=== PATIENT | female | born 1940 | race Caucasian/White ===

== ENCOUNTER 2016-03-02 06:10 | Emergency (ER) | payer MEDICARE ==
[~2016-03-02 06:10] MED LIST: ALBUTEROL0.09 MG/A4 IH; APHEN325 MG PO; BACTRIM DS 8001 TAB PO; BISOPROLOL5 MG PO; CALCIUM + D 5001 TAB PO; CALCIUM WITH D1 CTB PO; CIPRO 250MG TA250 MG PO; COLACE 100100 MG/CAP PO; COLACE100 M1 PO; FLONASE0.05 MG/AC NS; GABAPENTIN100 M1 PO; GABAPENTIN300 MG PO; GOOD NEIGHBOR650 MG PO; HCTZ/LISINOPRIL1 TAB PO; HUMALOG KW200 UNIT/1 SC; HUMALOG KW200 UNIT/1 SQ; HUMALOG PEN100 U/ML SC; IBUPROFEN200 M1 PO; INSULIN HUMA U SC; LANTUS PEN100 U/ML SC; LANTUS SOLOS100 U/ML SC; LIPITOR 10MG10 MG PO; LIPITOR10 MG PO; LISINOPRIL2.5 MG PO; MEDI-FIRST ASP325 MG PO; MIRALAX17 GM/DOSE PO; NORCO 325 MG-51 TA1 PO; NTG 0.4; OXYCODONE5 M1 PO; PLAVIX 75MG TAB75 MG PO; RANITIDINE 150150 MG PO; [UNRECOGNIZED DRUG - OTHER] PO; [UNRECOGNIZED DRUG - OTHER] SC
[2016-03-02] MEDS ORDERED: FLEXERIL 1010 MG/TAB PO (07:41)
[2016-03-02] MEDS ORDERED: PERCOCET 325 MG1 TA2 PO (07:41)
== END 2016-03-02 08:06 | disposition home or self-care (01) ==
LOC: ED 06:10
DX: M54.5 Low back pain (principal)

== ENCOUNTER → 2016-06-25 | Outpatient (CLI) | payer MEDICARE ==
[2016-03-02 08:06] VITALS: BP 147/92
[~2016-06-25] MED LIST changes: +FLEXERIL 1010 MG/TAB PO; +PERCOCET 325 MG1 TA2 PO
== END ==
LOC: LAB 16:49
DX: E13.9 Other specified diabetes mellitus without complications (principal)

== ENCOUNTER → 2016-08-22 | Outpatient (CLI) | payer MEDICARE ==
[2016-03-02 08:06] VITALS: BP 147/92
== END ==
LOC: LAB 07:19
DX: E13.9 Other specified diabetes mellitus without complications (principal); I10 Essential (primary) hypertension

== ENCOUNTER → 2016-10-20 | Outpatient (CLI) | payer MEDICARE, MEDICAID ==
[2016-03-02 08:06] VITALS: BP 147/92
== END ==
LOC: LAB 16:16
DX: E13.9 Other specified diabetes mellitus without complications (principal); I12.9 Hypertensive chronic kidney disease with stage 1 through stage 4 chronic kidney disease, or unspecified chronic kidney disease; N18.3 Chronic kidney disease, stage 3 (moderate); R53.83 Other fatigue

== ENCOUNTER → 2017-01-09 | Outpatient (CLI) | payer MEDICARE, MEDICAID ==
[2016-03-02 08:06] VITALS: BP 147/92
[2017-01-09 17:44] LABS: ALBUMIN 3.8 g/dL (3.5-5.0); CALCIUM 9.1 mg/dL (8.4-10.2); POTASSIUM 4.4 mmol/L (3.6-5.0); TOTAL BILIRUBIN 0.4 mg/dL (0.2-1.3); TOTAL PROTEIN 7.3 g/dL (6.3-8.2)
== END ==
LOC: LAB 16:51
PROVIDERS: Family Medicine
DX: E13.9 Other specified diabetes mellitus without complications (principal); Z12.12 Encounter for screening for malignant neoplasm of rectum; E11.22 Type 2 diabetes mellitus with diabetic chronic kidney disease; N18.3 Chronic kidney disease, stage 3 (moderate); I12.9 Hypertensive chronic kidney disease with stage 1 through stage 4 chronic kidney disease, or unspecified chronic kidney disease; E03.9 Hypothyroidism, unspecified

== ENCOUNTER → 2017-01-28 | Outpatient (CLI) | payer MEDICARE, MEDICAID ==
[2016-03-02 08:06] VITALS: BP 147/92
== END ==
LOC: RAD 16:47
DX: R10.12 Left upper quadrant pain (principal); E07.89 Other specified disorders of thyroid; I10 Essential (primary) hypertension; E13.9 Other specified diabetes mellitus without complications

== ENCOUNTER → 2017-01-28 | Outpatient (CLI) | payer MEDICARE, MEDICAID ==
[2016-03-02 08:06] VITALS: BP 147/92
== END ==
LOC: LAB 15:54
DX: Z12.12 Encounter for screening for malignant neoplasm of rectum (principal)

== ENCOUNTER → 2017-02-24 | Outpatient (CLI) | payer MEDICARE, MEDICAID ==
[2016-03-02 08:06] VITALS: BP 147/92
[2017-02-24 12:05] LABS: BUN/CREATININE RATIO 14.2 (6.0-26.0); CALCIUM 8.8 mg/dL (8.4-10.2); POTASSIUM 4.8 mmol/L (3.6-5.0)
== END ==
LOC: LAB 11:43
PROVIDERS: Family Medicine
DX: E07.89 Other specified disorders of thyroid (principal); N18.3 Chronic kidney disease, stage 3 (moderate)

== ENCOUNTER → 2017-03-03 | Outpatient (CLI) | payer MEDICARE ==
[2016-03-02 08:06] VITALS: BP 147/92
== END ==
LOC: RAD 02-27 09:45
DX: R10.12 Left upper quadrant pain (principal); E13.9 Other specified diabetes mellitus without complications; K63.89 Other specified diseases of intestine; R18.8 Other ascites; E27.9 Disorder of adrenal gland, unspecified; R93.5 Abnormal findings on diagnostic imaging of other abdominal regions, including retroperitoneum; R14.0 Abdominal distension (gaseous)
CPT/HCPCS: Q9967

== ENCOUNTER → 2017-03-05 | Outpatient (CLI) | payer MEDICARE ==
[2016-03-02 08:06] VITALS: BP 147/92
[2017-03-05 20:05] LABS: ALBUMIN 3.4 g/dL (3.5-5.0); BUN/CREATININE RATIO 12.1 (6.0-26.0); CALCIUM 8.9 mg/dL (8.4-10.2); POTASSIUM 4.9 mmol/L (3.6-5.0); TOTAL BILIRUBIN 0.4 mg/dL (0.2-1.3); TOTAL PROTEIN 6.8 g/dL (6.3-8.2)
[2017-03-05 20:21] LABS: BASO # 0.1 (0.02-0.10); EOS # 0.2 (0.04-0.40); EOS % 2.1 % (1.0-5.0); HEMATOCRIT 33.2 % (37.0-47.0); HEMOGLOBIN 9.7 g/dL (12.5-16.0); LYMPH# 2.3 (1.50-4.00); MEAN CELL VOLUME 78 fl (78-100); MEAN PLATELET VOLUME 10.3 fl (7.4-10.4); MONO # 0.7 (0.20-0.80); NEU # 6.3 (1.40-6.50); RED BLOOD COUNT 4.28 M/mm3 (4.10-5.30); RED CELL DISTRIBUTION WIDTH 15.4 % (11.5-14.5); WHITE BLOOD COUNT 9.5 K/mm3 (4.8-10.8)
[2017-03-05 20:28] LABS: MEAN CORPUSCULAR HEMOGLOBIN 23 pg (27-31); MEAN CORPUSCULAR HGB CONC 29 g/dL (33-37); PLATELET COUNT 501 K/mm3 (130-400)
== END ==
LOC: LAB 17:39
PROVIDERS: Family Medicine
DX: R10.12 Left upper quadrant pain (principal)

== ENCOUNTER → 2017-04-24 | Outpatient (CLI) | payer MEDICARE ==
[2016-03-02 08:06] VITALS: BP 147/92
== END ==
LOC: LAB 16:53
DX: E13.9 Other specified diabetes mellitus without complications (principal)

== ENCOUNTER 2017-05-29 13:09 | Inpatient (IN) | payer MEDICARE ==
[~2017-05-29] VITALS: Ht 167.6 cm; Wt 81.5 kg
[2017-05-29 13:58] VITALS: BP 117/68
[2017-05-29 17:42] LABS: URINE APPEARANCE CLEAR; URINE BILIRUBIN NEGATIVE (NEGATIVE); URINE BLOOD NEGATIVE (NEGATIVE); URINE COLOR YELLOW; URINE GLUCOSE NEGATIVE (NEGATIVE); URINE KETONE NEGATIVE (NEGATIVE); URINE LEUKOCYTE ESTERASE NEGATIVE (NEGATIVE); URINE NITRATE NEGATIVE (NEGATIVE); URINE PROTEIN(semi-quant) NEGATIVE (NEGATIVE); URINE UROBILINOGEN NORMAL (NORMAL)
[2017-05-29 18:13] VITALS: BP 119/64
[2017-05-29] MEDS ORDERED: NEURONTIN300 MG/CAP PO (18:53)
[2017-05-29] MEDS ORDERED: LANTUS SOLOS100 U/ML (19:14)
[2017-05-29] MEDS ORDERED: HUMALOG KWIKPEN SQ (19:16)
[2017-05-29] MEDS ORDERED: PANTOPRAZOLE SO40 MG PO (19:16)
[2017-05-29] MEDS ORDERED: LEVOTHYROXINE0.05 MG PO (19:17)
[2017-05-29] MEDS ORDERED: ACETAMINOPHEN-H1 TA2 PO (19:19)
[2017-05-30 06:30] VITALS: BP 122/67
[2017-05-30 18:56] VITALS: BP 111/70
[2017-05-31 07:13] VITALS: BP 117/70
[2017-05-31 19:10] VITALS: BP 100/62
[2017-06-01 01:45] VITALS: BP 86/42
[2017-06-01 02:25] VITALS: BP 115/61
[2017-06-01 06:37] VITALS: BP 114/64
[2017-06-01 07:07] LABS: BASO # 0.1 (0.02-0.10); EOS # 0.2 (0.04-0.40); EOS % 1.3 % (1.0-5.0); HEMATOCRIT 28.7 % (37.0-47.0); HEMOGLOBIN 8.2 g/dL (12.5-16.0); LYMPH# 1.9 (1.50-4.00); MEAN CELL VOLUME 84 fl (78-100); MEAN PLATELET VOLUME 10.3 fl (7.4-10.4); NEU # 8.8 (1.40-6.50); PLATELET COUNT 488 K/mm3 (130-400); RED BLOOD COUNT 3.43 M/mm3 (4.10-5.30); WHITE BLOOD COUNT 12.1 K/mm3 (4.8-10.8)
[2017-06-01 07:08] LABS: MEAN CORPUSCULAR HEMOGLOBIN 24 pg (27-31); MEAN CORPUSCULAR HGB CONC 29 g/dL (33-37); RED CELL DISTRIBUTION WIDTH 26.2 % (11.5-14.5)
[2017-06-01 07:10] LABS: CALCIUM 8.6 mg/dL (8.4-10.2); POTASSIUM 4.1 mmol/L (3.6-5.0)
[2017-06-01 18:48] VITALS: BP 97/55
[2017-06-02 06:27] VITALS: BP 118/65
[2017-06-02 18:19] VITALS: BP 120/64
[2017-06-03 06:28] VITALS: BP 128/74
[2017-06-03 18:01] VITALS: BP 110/65
[2017-06-04 06:20] VITALS: BP 113/73
[2017-06-04 09:37] LABS: BASO # 0.1 (0.02-0.10); EOS # 0.3 (0.04-0.40); EOS % 2.4 % (1.0-5.0); HEMATOCRIT 30.5 % (37.0-47.0); HEMOGLOBIN 8.7 g/dL (12.5-16.0); LYMPH# 1.9 (1.50-4.00); MEAN CELL VOLUME 85 fl (78-100); MEAN PLATELET VOLUME 10.3 fl (7.4-10.4); NEU # 7.3 (1.40-6.50); RED BLOOD COUNT 3.57 M/mm3 (4.10-5.30); WHITE BLOOD COUNT 10.6 K/mm3 (4.8-10.8)
[2017-06-04 09:38] LABS: MEAN CORPUSCULAR HEMOGLOBIN 24 pg (27-31); MEAN CORPUSCULAR HGB CONC 29 g/dL (33-37); PLATELET COUNT 593 K/mm3 (130-400)
[2017-06-04 18:28] VITALS: BP 138/78
[2017-06-05 06:21] VITALS: BP 129/76
[2017-06-05 18:03] VITALS: BP 128/74
[2017-06-06 06:28] VITALS: BP 120/68
[2017-06-06 18:16] VITALS: BP 105/56
[2017-06-07 06:26] VITALS: BP 141/78
[2017-06-07 18:15] VITALS: BP 109/61
[2017-06-08 06:17] VITALS: BP 139/72
[2017-06-08 06:23] LABS: HEMOGLOBIN 8.8 g/dL (12.5-16.0); MEAN CELL VOLUME 86 fl (78-100); MEAN PLATELET VOLUME 9.6 fl (7.4-10.4); PLATELET COUNT 491 K/mm3 (130-400); RED BLOOD COUNT 3.62 M/mm3 (4.10-5.30)
[2017-06-08 06:37] LABS: MEAN CORPUSCULAR HEMOGLOBIN 24 pg (27-31); MEAN CORPUSCULAR HGB CONC 28 g/dL (33-37); RED CELL DISTRIBUTION WIDTH 26.2 % (11.5-14.5)
[2017-06-08 06:38] LABS: BUN/CREATININE RATIO 15.8 (6.0-26.0); CALCIUM 8.7 mg/dL (8.4-10.2); POTASSIUM 4.3 mmol/L (3.6-5.0)
[2017-06-08 07:46] LABS: LYMPHOCYTE 26 % (20-51); NEUTROPHILS 64 % (42-75)
[2017-06-08 07:47] LABS: HYPOCHROMIA 1+; MONOCYTE 5 % (3-10); POLYCHROMASIA 1+
[2017-06-08 07:48] LABS: MICROCYTOSIS 1+; OVALOCYTES 1+
[2017-06-08 07:50] LABS: URINE APPEARANCE CLOUDY; URINE COLOR LT YELLOW
[2017-06-08 07:58] LABS: PH-URINE 7.5 (5.0 - 8.0); URINE BILIRUBIN NEGATIVE (NEGATIVE); URINE BLOOD 50 ery/uL (NEGATIVE); URINE GLUCOSE NEGATIVE (NEGATIVE); URINE KETONE NEGATIVE (NEGATIVE); URINE LEUKOCYTE ESTERASE 2+ (NEGATIVE); URINE NITRATE POSITIVE (NEGATIVE); URINE PROTEIN(semi-quant) TRACE mg/dL (NEGATIVE); URINE UROBILINOGEN NORMAL (NORMAL); URINE WBC >50 /hpf (0-3)
[2017-06-08 11:46] LABS: URINE APPEARANCE CLOUDY; URINE BILIRUBIN NEGATIVE (NEGATIVE); URINE BLOOD 50 ery/uL (NEGATIVE); URINE COLOR LT YELLOW; URINE GLUCOSE NEGATIVE (NEGATIVE); URINE KETONE NEGATIVE (NEGATIVE); URINE LEUKOCYTE ESTERASE 2+ (NEGATIVE); URINE NITRATE NEGATIVE (NEGATIVE); URINE PROTEIN(semi-quant) TRACE mg/dL (NEGATIVE); URINE UROBILINOGEN NORMAL (NORMAL); URINE WBC >50 /hpf (0-3)
[2017-06-08 18:21] VITALS: BP 104/65
[2017-06-09 06:24] VITALS: BP 130/72
[2017-06-09 18:11] VITALS: BP 106/66
[2017-06-10 06:24] VITALS: BP 110/68
[2017-06-10 18:32] VITALS: BP 111/70
[2017-06-11 06:34] VITALS: BP 127/76
[2017-06-11] MEDS ORDERED: PRAMIPEXOLE D0.25 MG PO (15:41)
[2017-06-11 18:00] VITALS: BP 92/63
[2017-06-12 06:26] VITALS: BP 118/62
[2017-06-12] MEDS ORDERED: SEPTRA DS 8001 TAB PO (06:37)
[2017-06-12] MEDS ORDERED: FERROUS SU325 MG/TAB PO (06:38)
[2017-06-12] MEDS ORDERED: SERTRALINE50 MG PO (06:39)
[2017-06-12] MEDS ORDERED: NYSTATIN15 G1 TP (06:40)
[2017-06-12] MEDS ORDERED: MEGACE 40MG40 MG/TAB PO (06:42)
[2017-06-12] MEDS ORDERED: PEG 335017 GM/Dose PO (06:42)
[2017-06-12 09:52] VITALS: BP 103/61
== END 2017-06-12 11:19 | disposition home health service (06) | DRG 948 ==
LOC: MED/SURG 13:09
PROVIDERS: Family Medicine; ADMIT Physician Assistant
DX: R53.81 Other malaise (principal); C18.8 Malignant neoplasm of overlapping sites of colon; N39.0 Urinary tract infection, site not specified; C79.9 Secondary malignant neoplasm of unspecified site; I10 Essential (primary) hypertension; I25.10 Atherosclerotic heart disease of native coronary artery without angina pectoris; Z95.1 Presence of aortocoronary bypass graft; Z87.891 Personal history of nicotine dependence; D70.9 Neutropenia, unspecified; R50.81 Fever presenting with conditions classified elsewhere; E11.9 Type 2 diabetes mellitus without complications; Z79.4 Long term (current) use of insulin; B35.6 Tinea cruris; B96.1 Klebsiella pneumoniae [K. pneumoniae] as the cause of diseases classified elsewhere; N76.0 Acute vaginitis
CPT/HCPCS: J1650; J1815